=== PATIENT | male | born 1990 | race African-American/Black ===

== ENCOUNTER 2021-11-03 14:43 | Emergency (ER) | payer OTHER, MEDICAID | END 2021-11-03 16:45 | disposition home or self-care (01) | LOC: ER1 14:43 | PROVIDERS: Physician Assistant | DX: R11.2 Nausea with vomiting, unspecified (principal); R19.7 Diarrhea, unspecified; I10 Essential (primary) hypertension; F17.210 Nicotine dependence, cigarettes, uncomplicated | CPT/HCPCS: 80307; 99284 ==